=== PATIENT | female | born 2000 | race Caucasian/White ===

== ENCOUNTER 2021-03-14 10:21 | Emergency (ER) | payer OTHER ==
[~2021-03-14] VITALS: Ht 196 cm; Wt 163.3 kg
--- NOTE | 2021-03-14 10:57 | ED Upper Extremity ---
General Stated Complaint: RT WRIST INJ Source: patient History of Present Illness Date Seen by Provider: March 14, 2021 Time Seen by Provider: 10:36 Initial Comments 21-year-old female presenting with pain for over the last week since tripping over her puppy. She states the puppy is still moving and wants to always be under people's feet. She tried to avoid stepping on her new puppy and fell. She landed on her right arm and wrist and has had pain since then. It was not improving and she has had prior fracture there so she was concerned that there may be a new injury. Since it was not improved over the last week she came in to be seen today. She denies any head injury or losing consciousness. She denies any other injuries or problems Onset: last week Severity: severe Pain/Injury Location: right wrist Method of Injury: fell Modifying Factors: Worse With Jarring, Worse With Movement Allergies and Home Medications Allergies Coded Allergies: No Known Drug Allergies (Unverified , 03/14/21) Home Medications Tramadol HCl 50 Mg Tablet, 50 MG PO Q6H PRN for PAIN Prescribed by: HERRERA MOTT on 03/14/21 1156 Patient Home Medication List Home Medication List Reviewed: Yes Review of Systems Constitutional: No chills, No fever EENTM: no symptoms reported Respiratory: no symptoms reported Cardiovascular: no symptoms reported Gastrointestinal: no symptoms reported Genitourinary: no symptoms reported Musculoskeletal: see HPI, joint pain (Right medial wrist pain) Skin: No change in color Psychiatric/Neurological: Denies Headache, Denies Numbness, Denies Paresthesia Past Uhpneoz-Jezzjn-Bzfzje Hx Past Med/Social Hx: Reviewed Nursing Past Med/Soc Hx Past Medical History Respiratory: No Cardiac: No Neurological: No Musculoskeletal: Yes Fractures (Previous right wrist fracture) Physical Exam Vital Signs Vital Signs - First Documented 03/14/21 10:46 Temp 36.8 Pulse 91 Resp 16 B/P (MAP) 141/80 (100) Pulse Ox 98 O2 Delivery Room Air Capillary Refill : Height, Weight, BMI Height: '" Weight: lbs. oz. 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 Evidence of old prior injury. Placed in cock-up wrist splint. Counseled on follow-up and return precautions. Advised to follow-up and establish care with a primary clinic at [facility]. Also given information for orthopedics. Since she reports that Tylenol and ibuprofen were not helping will prescribe a few tramadol. Also advised to continue with the Tylenol and ibuprofen as well as ice and immobilization over the next week. Diagnostic Imaging Diagonstic Imaging: Xray Plain Films/CT/US/NM/MRI: other (wrist) Comments NAME: HEMASELAM Monroe [place] MED REC#: [id number] PT STATUS: REG ER : 2000 PHYSICIAN: HERRERA MOTT MD ADMIT DATE: 03/14/21/ER FS Draft Date of Exam:03/14/21 WRIST 3 VIEW RIGHT HISTORY: Fall with right wrist pain. TECHNIQUE: Three views of the right wrist. COMPARISON: None. FINDINGS: No acute fracture or dislocation is seen in the right wrist. There is 4 mm of negative ulnar variance. Well-corticated ossifications are seen in the region of the TFCC, which may be from remote trauma. There is moderate soft tissue swelling about the right wrist, particularly medially and dorsally. Alignment otherwise appears normal. IMPRESSION: 1. Soft tissue swelling with no acute osseous abnormality seen in the right wrist. 2. Negative ulnar variance with likely remote trauma at the [facility]. Dictated on workstation # [id number] Dict: 03/14/21 1111 Trans: 03/14/21 1115 [id number] Interpreted by: MARIO MORA MD Electronically signed by: Departure Impression Primary Impression: Acute pain of right wrist Additional Impressions: Right wrist sprain Qualified Codes: S63.501A - Unspecified sprain of right wrist, initial encounter Contusion of right wrist, initial encounter Fall at home Qualified Codes: W19.XXXA - Unspecified fall, initial encounter; Y92.009 - Unspecified place in unspecified non-institutional (private) residence as the place of occurrence of the external cause Disposition: 01 HOME, SELF-CARE Condition: Stable Departure-Patient Inst. Decision time for Depature: 11:52 Referrals: NO,LOCAL PHYSICIAN (PCP) Primary Care Physician KIERAN BURGER MD [facility] Patient Instructions: Common Wrist Injuries ED, Wrist Sprain ED, Minor Contusion ED Add. Discharge Instructions: Use wrist splint for support and to stabilize the wrist over the next week. Ice 20-30 minutes every few hours as needed for pain and swelling. Continue with Ibuprofen and Acetaminophen for pain. Use the Tramadol for more severe pain. Check with [facility] by calling [phone] to see about establishing care with a local provider. Danny Baron APRN and Dr. Burger are with Orthopedics and can be reached by calling [phone]. Danny does clinic here in [place] and Dr. Burger is primarily in [place]. If you are having more problems and not improving then you could see Orthopedics, otherwise check with primary care clinic Scripts Tramadol HCl (Tramadol HCl) 50 Mg Tablet 50 MG PO Q6H PRN for PAIN for 3 Days, #12 TAB 0 Refills Prov: HERRERA MOTT MD 03/14/21 Images Extremities-Upper 1 - Tenderness to palpation and movement in the right wrist HERRERA MOTT MD March 14, 2021 10:57
--- NOTE | 2021-03-14 11:15 | Diagnostic Imaging Report ---
HISTORY: Fall with right wrist pain. TECHNIQUE: Three views of the right wrist. COMPARISON: None. FINDINGS: No acute fracture or dislocation is seen in the right wrist. There is 4 mm of negative ulnar variance. Well-corticated ossifications are seen in the region of the TFCC, which may be from remote trauma. There is moderate soft tissue swelling about the right wrist, particularly medially and dorsally. Alignment otherwise appears normal. IMPRESSION: 1. Soft tissue swelling with no acute osseous abnormality seen in the right wrist. 2. Negative ulnar variance with likely remote trauma at the [facility]. Dictated by: Dictated on workstation # [id number]
[2021-03-14] MEDS ORDERED: TRM50T PO (11:55)
[2021-03-14 12:03] VITALS: BP 141/80
== END 2021-03-14 12:03 | disposition home or self-care (01) ==
LOC: ER FS 10:25
DX: S63.501A Unspecified sprain of right wrist, initial encounter (principal); W01.0XXA Fall on same level from slipping, tripping and stumbling without subsequent striking against object, initial encounter; Y92.009 Unspecified place in unspecified non-institutional (private) residence as the place of occurrence of the external cause
CPT/HCPCS: 73110

== ENCOUNTER 2021-07-08 23:26 | Emergency (ER) | payer OTHER ==
[~2021-07-08] VITALS: Ht 200.7 cm; Wt 167.8 kg
[~2021-07-08 23:26] MED LIST: TRM50T PO
[2021-07-08 23:33] VITALS: BP 165/84
[2021-07-08 23:54] LABS: COLOR,URINE YELLOW
[2021-07-08 23:55] LABS: BACTERIA,URINE FEW /HPF; BILIRUBIN,URINE NEGATIVE (NEGATIVE); CLARITY,URINE CLOUDY; GLUCOSE, URINE (UA) NEGATIVE (NEGATIVE); KETONES,URINE NEGATIVE (NEGATIVE); LEUKOCYTE ESTERASE ,URINE 1+ (NEGATIVE); NITRITE,URINE NEGATIVE (NEGATIVE); PH,URINE 6.5 (5-9); PROTEIN,URINE 1+ (NEGATIVE); SQUAMOUS EPITHELIAL CELL,UR 0-2 /HPF; WBC,URINE 50-100 /HPF
[2021-07-08] MEDS ORDERED: HYDROcodone/APAP 7.5 MG/325 MG (LORTAB, LORCET PLUS) TABLET PO STA (23:56)
[2021-07-08] MEDS ORDERED: PHENAZOPYRIDINE 100 MG (PYRIDIUM) TABLET PO STA (23:56)
[2021-07-08] MEDS ORDERED: IBUPROFEN 800 MG (MOTRIN) TAB PO STA (23:56)
--- NOTE | 2021-07-09 | ED GU-Female ---
General Chief Complaint: Back Problems Stated Complaint: LOWER BACK PAIN Nursing Triage Note: PT AMBUALTE TO ROOM FS OF WITH C/O LOW BACK PAIN X4 DAYS. PT STATES SHE BELIEVES SHE HAS UTI. PT REPORTS HX OF KIDNEY STONES AND UTI. Source: patient Exam Limitations: no limitations History of Present Illness Date Seen by Provider: Jul 08, 2021 Time Seen by Provider: 23:46 Initial Comments Here with report of low back pain and right flank pain for the last 3 to 4 days. Also has dysuria. Nausea with the pain. She has been drinking cranberry juice and water. States appetite decrease. Denies fever or chills currently. Does have history of kidney infection or urinary tract infection as well as kidney stones. States this does not feel like a kidney stone. Timing/Duration: getting worse, other (3 to 4 days) Severity/Quality: moderate, aching Location: right flank Radiation: back Activities at Onset: none Modifying Factors: Worsens With Urinating Associated Symptoms: dysuria; No fever/chills; lower back pain, nausea/vomiting, urinary frequency Allergies and Home Medications Allergies Coded Allergies: No Known Drug Allergies (Unverified , 03/14/21) Patient Home Medication List Home Medication List Reviewed: Yes Tramadol HCl (Tramadol HCl) 50 Mg Tablet, 50 MG PO Q6H PRN for PAIN Prescribed by: HERRERA MOTT on 03/14/21 1156 Review of Systems Review of Systems Constitutional: see HPI; No chills, No fever EENTM: no symptoms reported Respiratory: No cough, No short of breath Cardiovascular: no symptoms reported Gastrointestinal: nausea; No vomiting Genitourinary: see HPI Musculoskeletal: see HPI Skin: no symptoms reported Past Ajunznv-Xadelm-Scicbp Hx Patient Social History Tobacco Use?: No Smoking Status: Never a Smoker Smokeless Tobacco Frequency: Never a User Use of E-Cig and/or Vaping dev: No Substance use?: No Alcohol Use?: No Pt feels they are or have been: No Seasonal Allergies Seasonal Allergies: No Past Medical History Surgeries: Yes (R Wrist ) Respiratory: No Cardiac: No Neurological: No Genitourinary: No Gastrointestinal: No Musculoskeletal: Yes Fractures Endocrine: No HEENT: No Cancer: No Psychosocial: No Integumentary: No Blood Disorders: No Family Medical History Reviewed Nursing Family Hx Physical Exam Vital Signs Vital Signs - First Documented 07/08/21 23:33 Temp 37.1 Pulse 94 Resp 19 B/P (MAP) 165/84 (111) O2 Delivery Room Air Capillary Refill : Less Than 3 Seconds Height, Weight, BMI Height: '" Weight: lbs. oz. kg; 41.00 BMI Method: General Appearance: WD/WN, no apparent distress Cardiovascular: no murmur, tachycardia Respiratory: lungs clear, normal breath sounds Gastrointestinal: non tender, soft Back: no vertebral tenderness, CVA tenderness (R) (Mild); No CVA tenderness (L) Neurologic/Psychiatric: alert, oriented x 3 Skin: normal color, warm/dry Progress/Results/Core Measures Suspected Sepsis SIRS Temperature: Pulse: 94 Respiratory Rate: 19 Blood Pressure 165 /84 Mean: 111 Results/Orders Lab Results Laboratory Tests Test 07/08/21 23:32 Range/Units Urine Color YELLOW Urine Clarity CLOUDY Urine pH 6.5 5-9 Urine Specific [place] 1.020 1.016-1.022 Urine Protein 1+ H NEGATIVE Urine Glucose (UA) NEGATIVE NEGATIVE Urine Ketones NEGATIVE NEGATIVE Urine Nitrite NEGATIVE NEGATIVE Urine Bilirubin NEGATIVE NEGATIVE Urine Urobilinogen 0.2 < = 1.0 MG/DL Urine Leukocyte Esterase 1+ H NEGATIVE Urine RBC (Auto) 3+ H NEGATIVE Urine RBC 5-10 H /HPF Urine WBC 50-100 H /HPF Urine Squamous Epithelial Cells 0-2 /HPF Urine Crystals NONE /LPF Urine Bacteria FEW H /HPF Urine Casts NONE /LPF Urine Mucus NEGATIVE /LPF Urine Culture Indicated YES My Orders Orders - BARRINGTON COOK MD Ua Culture If Indicated (07/08/21 23:43) Hydrocodone/Apap 7.5/325 Tab (Lortab 7. (07/08/21 23:56) Ibuprofen Tablet (Motrin Tablet) (07/08/21 23:56) Phenazopyridine Tablet (Pyridium Tablet) (07/08/21 23:56) Urine Culture (07/08/21 23:32) Rocephin 1000mg Im (07/09/21 00:15) Lidocaine 1% Inj 20 Ml (Xylocaine 1% Inj (07/09/21 00:15) Vital Signs/I&O 07/08/21 23:33 Temp 37.1 Pulse 94 Resp 19 B/P (MAP) 165/84 (111) O2 Delivery Room Air Capillary Refill : Less Than 3 Seconds Blood Pressure Mean: 111 Progress Note : Progress Note Seen and evaluated. UA ordered. Hydrocodone 7.5/325 1 tab p.o., ibuprofen 800 mg p.o. and Pyridium 100 mg p.o. ordered. Monitor patient. 0006: UTI noted. Given the fact that she is complaining of right kidney pain we will address this a little bit more aggressive with the first dose of antibiotic and IM Rocephin. She agrees with that plan. We will initiate outpatient cefdinir and she will follow up with her doctor. Discharged home with return precautions. Patient verbalized understanding instructions and agreement with plan. Departure Impression Primary Impression: Urinary tract infection Qualified Codes: N30.01 - Acute cystitis with hematuria Disposition: HOME, SELF-CARE Condition: Stable Departure-Patient Inst. Decision time for Depature: 00:07 Referrals: NO,LOCAL PHYSICIAN (PCP/Family) Primary Care Physician Patient Instructions: Urinary Tract Infection, Adult (DC) Add. Discharge Instructions: All discharge instructions reviewed with patient and/or family. Voiced understanding. Take medications as prescribed. The Pyridium will cause the urine to be dark orange and will stain your clothes. This also helps numb the urinary tract and will decrease your pain. Drink plenty of fluids. You may take Tylenol/acetaminophen 1000 mg every 6-8 hours as needed for pain. You may take ibuprofen 800 mg every 8 hours as needed for pain. Return for worse pain, f ever, vomiting, weakness, breathing problems or other concerns as needed. You should follow-up with your doctor later this week for recheck and further evaluation especially if not improving. Scripts Phenazopyridine HCl (Pyridium) 100 Mg Tablet 100 MG PO BID for 3 Days, #6 TAB 0 Refills Prov: BARRINGTON COOK MD 07/09/21 Cefdinir (Cefdinir) 300 Mg Capsule 300 MG PO BID for 5 Days, #10 CAP 0 Refills Prov: BARRINGTON COOK MD 07/09/21 BARRINGTON COOK MD Jul 09, 2021 00:00
[2021-07-09] MEDS ORDERED: CEFD300C3 PO (00:09)
[2021-07-09] MEDS ORDERED: PHEN-639 PO (00:09)
[2021-07-09] MEDS ORDERED: cefTRIAXone 1,000 MG VIAL IM ONE (00:15)
[2021-07-09] MEDS ORDERED: LIDOCAINE 1% INJ 20 ML 20 ML VIAL INJ ONE (00:15)
== END 2021-07-09 00:25 | disposition home or self-care (01) ==
LOC: EDUNIT# 23:26 → ER FS 23:29
DX: N39.0 Urinary tract infection, site not specified (principal)
CPT/HCPCS: 81000; 87088; 96372; 99284

== ENCOUNTER 2021-11-12 23:59 | Emergency (ER) | payer OTHER ==
[~2021-11-12] VITALS: Ht 198 cm; Wt 169.0 kg
[~2021-11-12 23:59] MED LIST changes: +CEFD300C3 PO; +PHEN-639 PO
[2021-11-13] MEDS ORDERED: LACTATED RINGERS 1,000 ML IV ONE (00:30)
[2021-11-13] MEDS ORDERED: ONDANSETRON 4 MG/2 ML (SDV) Z0FRAN IVP ONE (00:30)
[2021-11-13] MEDS ORDERED: KETOROLAC 30 MG/ML VIAL IVP ONE (00:30)
[2021-11-13 01:32] LABS: CALCIUM 9.1 MG/DL (8.5-10.1); CREATININE SERUM 0.92 MG/DL (0.60-1.30); POTASSIUM 3.7 MMOL/L (3.6-5.0)
--- NOTE | 2021-11-13 01:39 | ED General ---
General Chief Complaint: COVID19 Suspect/Confirmed Stated Complaint: FEVER/NAUSEA/VOMITING Nursing Triage Note: pt started having n/v and fever/cough 11/11. Tested negative for covid and flu at walk in clinic on 11/12. Symptoms were worse this evening and she felt as though she could not eat or drink anything d/t the nausea. Source of Information: Patient Exam Limitations: No Limitations History of Present Illness Date Seen by Provider: Nov 13, 2021 Time Seen by Provider: 00:10 Initial Comments This 21-year-old young lady presents to the emergency room by private vehicle with complaints of nausea, vomiting, cough, and diarrhea going on her third day now. Yesterday morning she was tested for influenza and COVID-19. She reports both tests were negative at that time, but she was advised to get retested in 48 hours if symptoms persisted. She has not been able to adequately hydrate or keep down medications at home due to vomiting. She reports vomiting within 30 minutes of eating or drinking anything. She would appreciate some IV hydration this evening and some nausea medications. Allergies and Home Medications Allergies Coded Allergies: No Known Drug Allergies (Unverified , 03/14/21) Patient Home Medication List Home Medication List Reviewed: Yes Cefdinir (Cefdinir) 300 Mg Capsule, 300 MG PO BID Prescribed by: BARRINGTON COOK on 07/09/218 Phenazopyridine HCl (Pyridium) 100 Mg Tablet, 100 MG PO BID Prescribed by: BARRINGTON COOK on 07/09/218 Tramadol HCl (Tramadol HCl) 50 Mg Tablet, 50 MG PO Q6H PRN for PAIN Prescribed by: HERRERA MOTT on 03/14/21 1156 Review of Systems Review of Systems Constitutional: see HPI, chills, fever EENTM: no symptoms reported Respiratory: see HPI, cough Cardiovascular: no symptoms reported Gastrointestinal: see HPI, vomiting Genitourinary: no symptoms reported Musculoskeletal: muscle pain Skin: no symptoms reported Psychiatric/Neurological: No Symptoms Reported Hematologic/Lymphatic: No Symptoms Reported Immunological/Allergic: no symptoms reported Past Xxnbkbp-Qwhwwg-Ckkcye Hx Patient Social History Tobacco Use?: No Use of E-Cig and/or Vaping dev: No Substance use?: No Alcohol Use?: No Pt feels they are or have been: No Seasonal Allergies Seasonal Allergies: No Past Medical History Surgeries: Yes (R Wrist ) Respiratory: No Cardiac: No Neurological: No : No Last Menstrual Period: Nov 07, 2021 Genitourinary: No Gastrointestinal: No Musculoskeletal: Yes Fractures Endocrine: No HEENT: No Cancer: No Psychosocial: No Integumentary: No Blood Disorders: No Physical Exam Vital Signs Vital Signs - First Documented 11/13/21 00:04 Temp 38.0 Pulse 105 Resp 18 B/P (MAP) 174/98 (123) Pulse Ox 96 O2 Delivery Room Air Capillary Refill : Less Than 3 Seconds Height, Weight, BMI Height: '" Weight: lbs. oz. 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 Skin: Normal Color, Warm/Dry Progress/Results/Core Measures Suspected Sepsis SIRS Temperature: Pulse: 105 Respiratory Rate: 18 Blood Pressure 174 /98 Mean: 123 Laboratory Tests 11/13/21 00:30: Creatinine 0.92 Results/Orders Lab Results Laboratory Tests Test 11/13/21 00:30 11/13/21 00:35 Range/Units Sodium Level 137 135-145 MMOL/L Potassium Level 3.7 3.6-5.0 MMOL/L Chloride Level 103 98-107 MMOL/L Carbon Dioxide Level 21 21-32 MMOL/L Anion Gap 13 5-14 MMOL/L Blood Urea Nitrogen 17 7-18 MG/DL Creatinine 0.92 0.60-1.30 MG/DL Estimat Glomerular Filtration Rate 76 BUN/Creatinine Ratio 18 Glucose Level 105 70-105 MG/DL Calcium Level 9.1 8.5-10.1 MG/DL Serum Test, Qualitative NEGATIVE NEGATIVE Influenza Type A Antigen NEGATIVE NEGATIVE Influenza Type B Antigen NEGATIVE NEGATIVE My Orders Orders - JOSE JUAN MARCUM MD Ondansetron Injection (Zofran Injectio (11/13/21 00:30) Ketorolac Injection (Toradol Injection) (11/13/21 00:30) Ed Iv/Invasive Line Start (11/13/21 00:22) Lactated Ringers (Lr 1000 Ml Iv Solution (11/13/21 00:30) Basic Metabolic Panel (11/13/21 00:22) Hcg,Qualitative Serum (11/13/21 00:22) Covid 19 Inhouse Test (11/13/21 01:11) Influenza A & B Antigens (11/13/21 01:17) Medications Given in ED Current Medications Medications Dose Ordered Sig/Tahmina Route Start Time Stop Time Status Last Admin Dose Admin Ketorolac Tromethamine 30 mg ONCE ONCE IVP 11/13/21 00:30 11/13/21 00:31 DC 11/13/21 00:34 30 MG Lactated Ringer's 1,000 ml @ 0 mls/hr Q0M ONCE IV 11/13/21 00:30 11/13/21 00:31 DC 11/13/21 00:34 0 MLS/HR Ondansetron HCl 8 mg ONCE ONCE IVP 11/13/21 00:30 11/13/21 00:31 DC 11/13/21 00:34 8 MG Vital Signs/I&O 11/13/21 11/13/21 00:04 00:34 Temp 38.0 38.0 Pulse 105 Resp 18 B/P (MAP) 174/98 (123) Pulse Ox 96 O2 Delivery Room Air Capillary Refill : Less Than 3 Seconds Blood Pressure Mean: 123 Progress Note : Time: 01:41 Progress Note Patient was seen and examined. She was treated with Zofran and Toradol as well as a liter of IV fluid. Chemistry is unremarkable. test is negative. Influenza and COVID swabs are pending. Departure Impression Primary Impression: Nausea and vomiting Qualified Codes: R11.2 - Nausea with vomiting, unspecified Additional Impression: Person under investigation for COVID-19 Disposition: 01 HOME, SELF-CARE Condition: Improved Departure-Patient Inst. Decision time for Depature: 02:24 Referrals: NO,LOCAL PHYSICIAN (PCP/Family) Primary Care Physician Patient Instructions: Nausea and Vomiting, Adult Add. Discharge Instructions: Start with a clear liquid diet and gradually advance your diet with small quantities of bland food as tolerated. Use the Zofran (ondansetron) as prescribed for nausea and vomiting. Use ibuprofen up to 600 mg every 6 hours as needed and/or Tylenol (acetaminophen) up to 1000 mg every 6 hours as needed for pain or fever. Remain in quarantine until the result of your COVID-19 test is known. This should result by midday today. Call with questions or concerns. Return to the ER if you have worsening symptoms. All discharge instructions reviewed with patient and/or family. Voiced understanding. Scripts Ondansetron (Ondansetron Odt) 4 Mg Tab.rapdis 4 MG PO Q4H PRN for NAUSEA/VOMITING, #10 TAB Prov: JOSE JUAN MARCUM MD 11/13/21 Work/School Note: Work Release Form Date Seen in the Emergency Department: Nov 13, 2021 Return to Work: Nov 15, 2021 Restrictions: Return-No Fever (24hrs), Return-No Vomiting(24hrs) Other Restrictions Listed Below: If COVID-negative may return 24 hours after untreated fever resolves. Restrictions: Follow CDC or health department guidelines if COVID positive. JOSE JUAN MARCUM MD Nov 13, 2021 01:39
[2021-11-13] MEDS ORDERED: ONDA4TAB11 PO (02:26)
[2021-11-13 02:45] VITALS: BP 153/97
== END 2021-11-13 02:45 | disposition home or self-care (01) ==
LOC: EDUNIT# 23:59 → ER FS 11-13 00:03
DX: R11.2 Nausea with vomiting, unspecified (principal); Z20.822 Contact with and (suspected) exposure to COVID-19; Z32.02 Encounter for pregnancy test, result negative
CPT/HCPCS: 36415; 80048; 84703; 87636; 87804

== ENCOUNTER 2022-05-24 17:38 | Emergency (ER) | payer OTHER ==
[~2022-05-24] VITALS: Ht 200.6 cm; Wt 169.3 kg
[~2022-05-24 17:38] MED LIST changes: +ONDA4TAB11 PO
[2022-05-24] MEDS ORDERED: KETOROLAC 60 MG/2 ML VIAL IM ONE (20:00)
--- NOTE | 2022-05-24 20:09 | ED Lower Extremity ---
General Chief Complaint: Lower Extremity Stated Complaint: LT FOOT SWELLING Source: patient Exam Limitations: no limitations History of Present Illness Date Seen by Provider: May 24, 2022 Time Seen by Provider: 19:44 Initial Comments 22-year-old female patient complaining of left foot increasing swelling for at least 2 months.. Patient states she had injury to her left foot at the age of 12 with dropping a 4 x 2 on her foot and then at age of 17 she had torn ligament and since then has had swelling of dorsal side of her foot and seen by orthopedic physician and had x-ray without other treatment. Patient states for the last 2 months she has had increase of swelling of the dorsal of her foot with increasing pain that did not get better with Tylenol ibuprofen without having any new injuries, new focal neurodeficit. Patient did not seek any medical attention for the last 2 months. Allergies and Home Medications Allergies Coded Allergies: No Known Drug Allergies (Unverified , 03/14/21) Patient Home Medication List Home Medication List Reviewed: Yes Cefdinir (Cefdinir) 300 Mg Capsule, 300 MG PO BID Prescribed by: BARRINGTON COOK on 07/09/21 0009 Ondansetron (Ondansetron Odt) 4 Mg Tab.rapdis, 4 MG PO Q4H PRN for NAUSEA/VOMITING Prescribed by: JOSE JUAN FAIR on 11/13/21 0226 Phenazopyridine HCl (Pyridium) 100 Mg Tablet, 100 MG PO BID Prescribed by: BARRINGTON COOK on 07/09/21 0009 Tramadol HCl (Tramadol HCl) 50 Mg Tablet, 50 MG PO Q6H PRN for PAIN Prescribed by: HERRERA MOTT on 03/14/21 1156 Review of Systems Constitutional: no symptoms reported EENTM: no symptoms reported Respiratory: no symptoms reported Cardiovascular: no symptoms reported Gastrointestinal: no symptoms reported Genitourinary: no symptoms reported : No Musculoskeletal: see HPI Skin: no symptoms reported Psychiatric/Neurological: No Symptoms Reported All Other Systems Reviewed Negative Unless Noted: Yes Past Mcdpjjt-Ptnizt-Qwwtzm Hx Seasonal Allergies Seasonal Allergies: No Past Medical History Surgeries: Yes (R Wrist ) Respiratory: No Cardiac: No Neurological: No Genitourinary: No Gastrointestinal: No Musculoskeletal: Yes Fractures Endocrine: No HEENT: No Cancer: No Psychosocial: No Integumentary: No Blood Disorders: No Physical Exam Vital Signs Capillary Refill : Height, Weight, BMI Height: '" Weight: lbs. oz. kg; 43.00 BMI Method: General Appearance: WD/WN, no apparent distress, obese HEENT: PERRL/EOMI, normal ENT inspection Neck: non-tender, full range of motion Cardiovascular: regular rate, rhythm, no edema, no gallop Respiratory: chest non-tender, lungs clear, normal breath sounds Back: normal inspection Hips: bilateral hip non-tender, bilateral hip normal inspection Legs: bilateral leg non-tender, bilateral leg normal inspection Knees: bilateral knee non-tender, bilateral knee normal inspection Ankles: bilateral ankle non-tender, bilateral ankle normal inspection Feet: right foot non-tender, right foot normal inspection, right foot normal range of motion; bilateral foot no evidence of injury; left foot swelling Neurologic/Tendon: normal motor functions, normal tendon functions Neurologic/Psychiatric: alert, oriented x 3 Skin: normal color 2 x 3 centimeter area of erythema on dorsal side of left foot on proximal second and third metatarsal with mild tenderness Progress/Results/Core Measures Results/Orders My Orders Orders - AMI MARTINS MD Ketorolac Injection (Toradol Injection) (05/24/22 20:00) Progress Progress Note : Progress Note Evaluation of patient in ER showed 22-year-old female patient with complaining of left foot swelling for 4 years that getting worse for the last 2 months. Patient did not seek medical attention. Patient had small local erythema of dorsum of left foot with mild tenderness. Patient treated with Toradol in ER and plan discharge home with instruction to follow-up with orthopedic physician for further evaluation. Plan to give prescription of Naprosyn. Patient had blood pressure of 170 over 80s without history of hypertension and advised to recheck her blood pressure and follow-up with her primary care physician. Departure Impression Primary Impression: Left foot pain Additional Impressions: Elevated blood pressure reading without diagnosis of hypertension Morbid obesity Disposition: 01 HOME, SELF-CARE Condition: Improved Departure-Patient Inst. Decision time for Depature: 20:12 Referrals: NO,LOCAL PHYSICIAN (PCP/Family) Primary Care Physician Patient Instructions: Foot Sprain ED, High Blood Pressure ED Add. Discharge Instructions: Elevate your left foot and apply ice on your left foot Follow-up with your orthopedic physician for further evaluation of chronic foot pain and edema Return to ER as needed All discharge instructions reviewed with patient and/or family. Voiced understanding. Scripts Naproxen (Naprosyn) 500 Mg Tablet 500 MG PO BID, #30 TAB 0 Refills Prov: AMI MARTINS MD 05/24/22 Work/School Note: Work Release Form Return to Work: May 26, 2022 AMI MARTINS MD May 24, 2022 20:09
[2022-05-24] MEDS ORDERED: NAPR-1071 PO (20:13)
[2022-05-24 20:20] VITALS: BP 155/105
== END 2022-05-24 20:20 | disposition home or self-care (01) ==
LOC: EDUNIT# 17:38 → ER FS 17:40
DX: M79.89 Other specified soft tissue disorders (principal); M79.672 Pain in left foot; R03.0 Elevated blood-pressure reading, without diagnosis of hypertension; E66.01 Morbid (severe) obesity due to excess calories; Z68.41 Body mass index [BMI] 40.0-44.9, adult; Z87.828 Personal history of other (healed) physical injury and trauma; Z87.81 Personal history of (healed) traumatic fracture; Z28.310 Unvaccinated for COVID-19
CPT/HCPCS: 99284

== ENCOUNTER 2022-11-25 11:47 | Emergency (ER) | payer SELFPAY ==
[~2022-11-25] VITALS: Ht 200.7 cm; Wt 170.4 kg
[~2022-11-25 11:47] MED LIST changes: +NAPR-1071 PO
[2022-11-25] MEDS ORDERED: NS IV 1000 ML 1,000 ML IV STA (12:00)
--- NOTE | 2022-11-25 12:08 | ED GU-Female ---
General Chief Complaint: - Reproductive Stated Complaint: EXCESSIVE MENSTRUATION Source: patient History of Present Illness Date Seen by Provider: Nov 25, 2022 Time Seen by Provider: 11:51 Initial Comments 22-year-old female presenting with complaints of heavy bleeding with clots for the last 13 days. She states she has a history of polycystic ovarian syndrome but has never had heavy bleeding with clots like this. She has been trying to get with her partner. She denies any vaginal discharge or pain with urination. She has been having some dry heaves earlier in the morning and some looser stools for the last few days. She denies having fever, chills, cough, congestion, sore throat, abdominal pain other than the pelvic cramping consistent with menses. 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 She denies any other spontaneous bleeding like from her gums, easy bruising, blood in her stool or urine. She reports taking a home test that was negative a few days before she started having the heavy menstrual cycle bleeding. She does not follow with a ingot passer and when she called her pcp's office they told her to go to the ED for evaluation. Timing/Duration: other (waxing and waning over the last 2 weeks.) Severity/Quality: mild, cramping Activities at Onset: none Prior Genitourinary Problems: none Sexual Zayante History: less than 2 months ago, single partner Associated Symptoms: No abdominal pain, No diaphoresis, No dysuria, No fever/chills, No loss of bladder control, No lower back pain, No lumps, No mass, No nausea/vomiting, No nocturia, No polyuria, No swelling, No syncope, No urinary frequency Allergies and Home Medications Allergies Coded Allergies: No Known Drug Allergies (Unverified , 03/14/21) Patient Home Medication List Home Medication List Reviewed: Yes Cefdinir (Cefdinir) 300 Mg Capsule, 300 MG PO BID Prescribed by: BARRINGTON COOK on 07/09/218 Medroxyprogesterone Acetate (Provera) 10 Mg Tablet, 10 MG PO DAILY Prescribed by: HERRERA MOTT on 11/25/22 145 Naproxen (Naprosyn) 500 Mg Tablet, 500 MG PO BID Prescribed by: Karen regalado on 05/24/222012 Ondansetron (Ondansetron Odt) 4 Mg Tab.rapdis, 4 MG PO Q4H PRN for NAUSEA/VOMITING Prescribed by: JOSE JUAN FAIR on 11/13/21 0226 Phenazopyridine HCl (Pyridium) 100 Mg Tablet, 100 MG PO BID Prescribed by: BARRINGTON COOK on 07/09/21 0009 Tramadol HCl (Tramadol HCl) 50 Mg Tablet, 50 MG PO Q6H PRN for PAIN Prescribed by: HERRERA MOTT on 03/14/21 1156 Review of Systems Review of Systems Constitutional: No chills, No fever EENTM: no symptoms reported Respiratory: no symptoms reported Cardiovascular: No palpitations 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), diarrhea (for last few days) Genitourinary: denies discharge, denies dysuria : No Musculoskeletal: no symptoms reported Skin: no symptoms reported Psychiatric/Neurological: No Symptoms Reported Hematologic/Lymphatic: Denies Blood Clots, Denies Easy Bleeding, Denies Easy Bruising Past Wqfuvmh-Pkghcu-Ihamir Hx Immunizations Up To Date First/Initial COVID19 Vaccinat: unvaccinated Seasonal Allergies Seasonal Allergies: No Past Medical History Surgery/Hospitalization HX: Asthma, PCOS Surgeries: Yes (R Wrist ) Respiratory: No Cardiac: No Neurological: No Genitourinary: No Gastrointestinal: No Musculoskeletal: Yes Fractures Endocrine: No HEENT: No Cancer: No Psychosocial: No Integumentary: No Blood Disorders: No Physical Exam Vital Signs Vital Signs - First Documented 11/25/22 11:51 Temp 36.3 Pulse 88 Resp 16 B/P (MAP) 145/84 (104) Pulse Ox 100 O2 Delivery Room Air Capillary Refill : Height, Weight, BMI Height: '" Weight: lbs. oz. kg; 42.00 BMI Method: General Appearance: WD/WN, no apparent distress, obese HEENT: PERRL/EOMI, pharynx normal Neck: non-tender, full range of motion, supple, normal inspection Cardiovascular: normal peripheral pulses, regular rate, rhythm Respiratory: chest non-tender, lungs clear, normal breath sounds, no respiratory distress, no accessory muscle use Gastrointestinal: normal bowel sounds, non tender, soft, no pulsatile mass Rectal: deferred Extremities: normal range of motion, non-tender, normal capillary refill Neurologic/Psychiatric: alert, oriented x 3 Skin: normal color, warm/dry Progress/Results/Core Measures Suspected Sepsis SIRS Temperature: Pulse: Respiratory Rate: Laboratory Tests 11/25/22 12:10: White Blood Count 9.4 Blood Pressure / Mean: Laboratory Tests 11/25/22 12:10: Creatinine 0.69, INR Comment 0.9, Platelet Count 306, Total Bilirubin 0.2 Results/Orders Lab Results Laboratory Tests Test 11/25/22 12:10 Range/Units White Blood Count 9.4 4.3-11.0 10^3/uL Red Blood Count 4.48 3.80-5.11 10^6/uL Hemoglobin 13.2 11.5-16.0 g/dL Hematocrit 38 35-52 % Mean Corpuscular Volume 86 80-99 fL Mean Corpuscular Hemoglobin 30 25-34 pg Mean Corpuscular Hemoglobin Concent 34 32-36 g/dL Red Cell Distribution Width 13.3 10.0-14.5 % Platelet Count 306 130-400 10^3/uL Mean Platelet Volume 9.0 9.0-12.2 fL Immature Granulocyte % (Auto) 0 % Neutrophils (%) (Auto) 60 42-75 % Lymphocytes (%) (Auto) 34 12-44 % Monocytes (%) (Auto) 5 0-12 % Eosinophils (%) (Auto) 1 0-10 % Basophils (%) (Auto) 1 0-10 % Neutrophils # (Auto) 5.6 1.8-7.8 10^3/uL Lymphocytes # (Auto) 3.2 1.0-4.0 10^3/uL Monocytes # (Auto) 0.5 0.0-1.0 10^3/uL Eosinophils # (Auto) 0.1 0.0-0.3 10^3/uL Basophils # (Auto) 0.1 0.0-0.1 10^3/uL Immature Granulocyte # (Auto) 0.0 0.0-0.1 10^3/uL Prothrombin Time 13.1 12.2-14.7 SEC INR Comment 0.9 0.8-1.4 Activated Partial Thromboplast Time 28 24-35 SEC Sodium Level 138 135-145 MMOL/L Potassium Level 4.0 3.6-5.0 MMOL/L Chloride Level 105 98-107 MMOL/L Carbon Dioxide Level 23 21-32 MMOL/L Anion Gap 10 5-14 MMOL/L Blood Urea Nitrogen 9 7-18 MG/DL Creatinine 0.69 0.60-1.30 MG/DL Estimat Glomerular Filtration Rate 125 BUN/Creatinine Ratio 13 Glucose Level 120 H 70-105 MG/DL Calcium Level 9.5 8.5-10.1 MG/DL Corrected Calcium 9.5 8.5-10.1 MG/DL Total Bilirubin 0.2 0.1-1.0 MG/DL Aspartate Amino Transf (AST/SGOT) 23 5-34 U/L Alanine Aminotransferase (ALT/SGPT) 37 0-55 U/L Alkaline Phosphatase 131 40-136 U/L Total Protein 7.0 6.4-8.2 GM/DL Albumin 4.0 3.2-4.5 GM/DL Lipase 27 8-78 U/L Human Chorionic Gonadotropin, Quant < 5 <5 MIU/ML My Orders Orders - HERRERA MOTT MD Comprehensive Metabolic Panel (11/25/22 12:00) Lipase (11/25/22 12:00) Ed Iv/Invasive Line Start (11/25/22 12:00) Cbc With Automated Diff (11/25/22 12:00) Ns Iv 1000 Ml (Sodium Chloride 0.9%) (11/25/22 12:00) Us Non Ob Pelvis Comp/Transvag (11/25/22 12:00) Hcg,Quantitative (11/25/22 12:00) Protime With Inr (11/25/22 12:00) Partial Thromboplastin Time (11/25/22 12:00) Vital Signs/I&O 11/25/22 11/25/22 11:51 15:10 Temp 36.3 36.3 Pulse 88 88 Resp 16 16 B/P (MAP) 145/84 (104) 145/84 Pulse Ox 100 100 O2 Delivery Room Air Room Air Capillary Refill : Progress Note #1: Progress Note Potential life-threatening conditions of ectopic , uterine cancer, ovarian cancer, incomplete miscarriage. Evaluate with blood work to look at her CBC for anemia or problems with her platelets, coags to look for abnormal clotting factors or coagulopathy, chemistry to evaluate for electrolyte imbalance or kidney or liver failure. Quantitative hCG to evaluate for possible miscarriage or ectopic . Urinalysis to look for infection. Obtain ultrasound of pelvis to evaluate for mass, ectopic , uterine fibroids, ovarian cysts, incomplete or missed . Give NS 1 L IVF bolus for hydration since she reports having diarrhea along with heavier vaginal bleeding. Progress Note #2: Time: 12:21 Progress Note CBC does not show elevation of WBC count or anemia. Hgb is 13.2. Awaiting other labs and ultrasound. Progress Note #3: Time: 14:05 Progress Note Coags and chemistry panel did not show any acute significant abnormality. She does have mild elevation of her glucose to 120. Her quantitative beta-hCG is less than 5. Her ultrasound has been performed but waiting on reading from radiology. Progress Note #4: Progress Note I reviewed the radiologist reading on her ultrasound. She had cysts on her ovaries but no evidence of torsion or compromised blood flow. She did have a apparent uterine fibroid. This could be contributing to her irregular and heavy bleeding. I reviewed the results and findings with the patient. She felt like she was doing a little better here while waiting on testing. Encouraged to follow-up with Dr. Valdovinos with her ingot passer of her choice. Tried to explain the fibroids and acute management of the bleeding but long-term management as well as helping her try to get would be best managed by a ingot passer. Encourage fluids and hydration. Sent a prescription for Provera 10 mg p.o. daily x5 days to try and help with the heavy vaginal bleeding. Advised that an other option would be oral control and patient stated that that has not helped her in the past with her bleeding. She thought she might wait and talk to Dr. Valdovinos her ingot passer prior to taking any medicine. Encouraged to rest and drink plenty of fluids to stay well-hydrated. May use [id number] NSAIDs such as ibuprofen or naproxen to help with her symptoms. Diagnostic Imaging Diagonstic Imaging: Ultrasound Plain Films/CT/US/NM/MRI: pelvis Comments [facility], [place] NAME: SELAM GARRIDO Keanu MED REC#: [id number] PT STATUS: REG ER : 2000 PHYSICIAN: HERRERA MOTT MD ADMIT DATE: 11/25/22/ER FS Signed Date of Exam:11/25/22 US NON OB PELVIS COMP/TRANSVAG PROCEDURE: US Non-ob pelvis comp/trans. TECHNIQUE: Multiple realtime grayscale images were obtained of the pelvis in various projections endovaginally. Transabdominal imaging was also performed. INDICATION: Cramping, pain and dysfunctional bleeding. There is a vascularized mass effect in the posterior uterine body effacing and distorting the thickened endometrium. The endometrial thickness was 1.2 cm. This is presumed a fibroid in submucosal involvement suspected. Area of parenchymal alteration and abnormal echotexture measures 3.8 x 2.5 x 2.9 cm follicular cyst in the ovaries on the right the largest measured 3 cm but showed no complexity. No adnexal torsion. No ascites. There are cervical nabothian cysts present the largest 1.1 cm. IMPRESSION: No adnexal torsion simple appearing right ovarian cyst the largest 3 cm small likely incidental cervical nabothian cysts. A probable hypervascularized uterine fibroid with likely submucosal involvement posterior body. Dictated by: Dictated on workstation # [id number] Dict: 11/25/22 1405 Trans: 11/25/22 1430 [facility] [id number] Interpreted by: MOO NUR Electronically signed by: MOO NUR 11/25/22 1430 Reviewed: Reviewed by Me Departure Impression Primary Impression: Menorrhagia with irregular cycle Additional Impression: Uterine fibroid Qualified Codes: D25.0 - Submucous leiomyoma of uterus Disposition: HOME, SELF-CARE Condition: Stable Departure-Patient Inst. Decision time for Depature: 14:56 Referrals: DEV HERRERA APRN (PCP) Primary Care Physician NO,LOCAL PHYSICIAN (Family) Primary Care Physician BRITTON VALDOVINOS DO Patient Instructions: Heavy Periods ED, Uterine Fibroids (DC) Add. Discharge Instructions: Take the Provera (Progesterone) to help get the bleeding to stop. Call Dr. Valdovinos or Gynecology doctor of your choice for follow up and to help with managing the uterine fibroid and your concern for trying to get . All discharge instructions reviewed with patient and/or family. Voiced understanding. Scripts Medroxyprogesterone Acetate (Provera) 10 Mg Tablet 10 MG PO DAILY for heavy menstrual bleeding for 5 Days, #5 TAB 0 Refills Prov: HERRERA MOTT MD 11/25/22 Work/School Note: Work Release Form Date Seen in the Emergency Department: Nov 25, 2022 Return to Work: Nov 26, 2022 Restrictions: No Restrictions HERRERA MOTT MD Nov 25, 2022 12:08
[2022-11-25 12:16] LABS: BASOPHILS # (AUTO) 0.1 10^3/uL (0.0-0.1); BASOPHILS % (AUTO) 1 % (0-10); EOSINOPHILS # (AUTO) 0.1 10^3/uL (0.0-0.3); EOSINOPHILS % (AUTO) 1 % (0-10); HEMATOCRIT 38 % (35-52); HEMOGLOBIN 13.2 g/dL (11.5-16.0); LYMPHOCYTES # (AUTO) 3.2 10^3/uL (1.0-4.0); LYMPHOCYTES % (AUTO) 34 % (12-44); MEAN CORPUSCULAR HEMOGLOBIN 30 pg (25-34); MEAN CORPUSCULAR HGB CONC 34 g/dL (32-36); MEAN CORPUSCULAR VOLUME 86 fL (80-99); MONOCYTES # (AUTO) 0.5 10^3/uL (0.0-1.0); MONOCYTES % (AUTO) 5 % (0-12); NEUTROPHILS # (AUTO) 5.6 10^3/uL (1.8-7.8); NEUTROPHILS % (AUTO) 60 % (42-75); PLATELET COUNT 306 10^3/uL (130-400); WHITE BLOOD COUNT 9.4 10^3/uL (4.3-11.0)
[2022-11-25 12:33] LABS: INR 0.9 (0.8-1.4); PROTHROMBIN TIME PATIENT 13.1 SEC (12.2-14.7)
[2022-11-25 12:51] LABS: ALANINE AMINOTRANSFERASE 37 U/L (0-55); ALKALINE PHOSPHATASE 131 U/L (40-136); BILIRUBIN,TOTAL 0.2 MG/DL (0.1-1.0); BUN/CREATININE RATIO 13; CALCIUM 9.5 MG/DL (8.5-10.1); CARBON DIOXIDE 23 MMOL/L (21-32); CHLORIDE 105 MMOL/L (98-107); CREATININE SERUM 0.69 MG/DL (0.60-1.30); GFR ESTIMATED 125; GLUCOSE 120 MG/DL (70-105); SODIUM 138 MMOL/L (135-145)
[2022-11-25 12:52] LABS: LIPASE 27 U/L (8-78)
--- NOTE | 2022-11-25 14:14 | Diagnostic Imaging Report ---
PROCEDURE: US Non-ob pelvis comp/trans. TECHNIQUE: Multiple realtime grayscale images were obtained of the pelvis in various projections endovaginally. Transabdominal imaging was also performed. INDICATION: Cramping, pain and dysfunctional bleeding. There is a vascularized mass effect in the posterior uterine body effacing and distorting the thickened endometrium. The endometrial thickness was 1.2 cm. This is presumed a fibroid in submucosal involvement suspected. Area of parenchymal alteration and abnormal echotexture measures 3.8 x 2.5 x 2.9 cm follicular cyst in the ovaries on the right the largest measured 3 cm but showed no complexity. No adnexal torsion. No ascites. There are cervical nabothian cysts present the largest 1.1 cm. IMPRESSION: No adnexal torsion simple appearing right ovarian cyst the largest 3 cm small likely incidental cervical nabothian cysts. A probable hypervascularized uterine fibroid with likely submucosal involvement posterior body. Dictated by: Dictated on workstation # [id number]
[2022-11-25] MEDS ORDERED: MEDR10TA PO (14:58)
[2022-11-25 15:10] VITALS: BP 145/84
== END 2022-11-25 15:11 | disposition home or self-care (01) ==
LOC: ER FS 11:48
DX: N92.0 Excessive and frequent menstruation with regular cycle (principal); D25.9 Leiomyoma of uterus, unspecified; Z28.310 Unvaccinated for COVID-19
CPT/HCPCS: 36415; 76830; 76856; 80053; 83690; 84702; 85025; 85610; 85730